=== PATIENT | male | born 1945 | race Native Hawaiian/Other Pacific Islander ===

== ENCOUNTER 2017-08-31 19:08 | Emergency (ER) | payer OTHER, MEDICARE ==
--- NOTE | 2017-08-31 22:11 | ER Document Report ---
ED General - General Chief Complaint: Cough Stated Complaint: COUGH Time Seen by Provider: 08/31/17 21:11 TRAVEL OUTSIDE OF THE [place] IN LAST 30 DAYS: No - HPI Notes: 72-year-old male presents with cough. Patient describes one half weeks of cough , dry, occasionally productive. Some mild congestion and sinus drainage. No fever, chills or sweats. Chest pain only with cough, achy, nonradiating. Gradual onset. No other modifying factors, no other associated symptoms, no other provocative or palliative factors. - Related Data Allergies/Adverse Reactions: No Known Allergies Allergy (Verified 08/31/17 19:09) Past Medical History - Social History Smoking Status: Never Smoker Frequency of alcohol use: None Drug Abuse: None Family History: Reviewed & Not Pertinent Patient has suicidal ideation: No Patient has homicidal ideation: No - Past Medical History Cardiac Medical History: Reports: Hx Hypertension Endocrine Medical History: Reports: Hx Diabetes Mellitus Type 2 Renal/ Medical History: Denies: Hx Peritoneal Dialysis Past Surgical History: Reports: Hx Abdominal Surgery Review of Systems - Review of Systems Notes: Review of systems as in history of present illness otherwise negative Physical Exam - Vital signs Vitals: Temp Pulse Resp BP Pulse Ox 99.8 F 79 18 182/78 H 94 08/31/17 19:20 08/31/17 19:20 08/31/17 19:20 08/31/17 19:20 08/31/17 19:20 - Notes Notes: General: Well developed . HEENT: Normocephalic, atraumatic. Pupils equal round reactive to light. No JVD. Chest: No trauma. Respiratory: Good air exchange, normal excursion. Cardiac: Regular rhythm. No murmurs or gallops. Abdomen: Soft, benign. Nondistended. Nontender. Back: No asymmetry or gross abnormality. Motor: Grossly normal power and tone. Neurologic: Alert, nonfocal. Cranial nerves II-12 are intact. Sensation intact. Vascular: Well perfused. Normal peripheral pulses. Skin: No petechiae or purpura. Course - Re-evaluation Re-evalutation: 08/31/17 22:11 Well-appearing male with persistent cough, may be bronchitis or less likely pneumonia. He is otherwise well in appearance. We will proceed with chest x- ray and reevaluation 08/31/17 23:21 Chest x-ray is unremarkable. Discharged home with a prescription for Tessalon Perles, outpatient follow-up. - Vital Signs Vital signs: Temp Pulse Resp BP Pulse Ox 98.7 F 77 16 157/74 H 95 08/31/17 23:15 08/31/17 23:15 08/31/17 23:15 08/31/17 23:15 08/31/17 23:15 Discharge - Discharge Clinical Impression: Bronchitis Condition: Good Disposition: HOME, SELF-CARE Instructions: Bronchitis ([facility], [facility]) Prescriptions: Benzonatate [Tessalon Perle 100 mg Capsule] 100 mg PO Q8HP PRN #40 cap PRN Reason: Referrals: FRANCISCO ASHER MD [Primary Care Provider] - Follow up as needed
--- NOTE | 2017-08-31 22:38 | RADIOLOGY REPORT (SQ) ---
EXAM DESCRIPTION: CHEST 2 VIEWS COMPLETED DATE/TIME: 08/31/2017 9:32 pm REASON FOR STUDY: Cough COMPARISON: None. EXAM PARAMETERS: NUMBER OF VIEWS: two views TECHNIQUE: Digital Frontal and Lateral radiographic views of the chest acquired. RADIATION DOSE: NA LIMITATIONS: none FINDINGS: LUNGS AND PLEURA: No opacities, masses or pneumothorax. No pleural effusion. MEDIASTINUM AND HILAR STRUCTURES: No masses or contour abnormalities. HEART AND VASCULAR STRUCTURES: Heart normal size. No evidence for failure. BONES: No acute findings. HARDWARE: None in the chest. OTHER: No other significant finding. IMPRESSION: NO ACUTE RADIOGRAPHIC FINDING IN THE CHEST. TECHNICAL DOCUMENTATION: JOB ID: [id number] [employer]- All Rights Reserved Reading location - IP/workstation name: [email or web address]
[2017-08-31 23:17] VITALS: BP 157/74
== END 2017-08-31 23:16 | disposition home or self-care (01) ==
LOC: ER 19:08
DX: J40 Bronchitis, not specified as acute or chronic (principal); R05 Cough; I10 Essential (primary) hypertension; E11.9 Type 2 diabetes mellitus without complications
CPT/HCPCS: 71046; 99283